=== PATIENT | male | born 1955 | race Caucasian/White ===

== ENCOUNTER 2017-08-27 21:08 | Emergency (ER) | payer MEDICARE, OTHER ==
[~2017-08-27] VITALS: Ht 182.9 cm; Wt 65.8 kg
[2017-08-27] MEDS ORDERED: CIPRO500 MG PO (23:38)
[2017-08-27] MEDS ORDERED: NORCO 5-325 TA1 EACH PO (23:38)
--- NOTE | 2017-08-28 16:48 | EKG ---
[facility] [address] [facility] [place] [address] Signed Normal sinus rhythm Normal ECG No previous ECGs available Confirmed by CASSIDY BURT MD ([id number]) on 08/28/2017 4:47:57 PM Electronically Signed By: CASSIDY BURT MD 08/28/17 1648 PATIENT NAME: SHREYAS CARDOZO Electrocardiogram DATE OF : 57 PHYSICIAN: CASSIDY BURT MD REPORT #: [id number] REPORT IS CONFIDENTIAL AND NOT TO BE RELEASED WITHOUT AUTHORIZATION
== END 2017-08-27 23:50 | disposition home or self-care (01) ==
LOC: ED 21:08
DX: N50.89 Other specified disorders of the male genital organs (principal)
CPT/HCPCS: 76870; 80053; 85025; 93005; 93010; 96374; 96375; 99284; J1170; J2405; J7030

== ENCOUNTER 2021-11-06 07:02 | Day surgery (SDC) | payer MEDICARE ==
--- NOTE | 2021-11-05 16:39 | NUR ---
CALLED PT FOR PHONE PRE-ADMIT, NO ANSWER AND NO VOICEMAIL SET UP.
[~2021-11-06] VITALS: Ht 185.4 cm; Wt 56.4 kg
--- NOTE | ~2021-11-06 | OR ---
[facility] [address] [place], [place] [address] Draft DATE OF OPERATION: 11/06/2021 SURGEON: Luis Shafer MD PREOPERATIVE DIAGNOSES: 1. History of right partial glossectomy. 2. Weight loss and dysphagia. POSTOPERATIVE DIAGNOSES: 1. History of right partial glossectomy. 2. Weight loss and dysphagia. PROCEDURES: 1. Upper endoscopy (diagnostic). 2. Percutaneous endoscopic gastrostomy tube placement. ANESTHESIA: Intravenous sedation (propofol infusion); Guille Che, BASKETBALL REFEREE and local 1% lidocaine. INDICATIONS: This 66-year-old white man is a patient of Dr. Cooper Collins, radiation therapist and was referred for consideration of percutaneous endoscopic gastrostomy tube. The patient underwent partial glossectomy at [facility] as well as neck dissection and has a fair amount of dysphagia and has had significant weight loss over time. He did have a nasoenteric feeding tube placed at time of his original operation, but did not tolerate it well. He has been considered for radiation and chemotherapy of the head and neck and on that basis, predictably his issues with weight loss and dysphagia will worsen rather than improve in the near-term. On that basis, a feeding tube has been recommended by Dr. Collins. I reviewed with the patient the options of feeding tube placement including open gastrostomy versus percutaneous endoscopic gastrostomy (PEG tube), which is preferred of course. The patient understands the risks of placement of his device by other either approach including but not limited to bleeding, infection, malposition and other unforeseen complications and wished to proceed. FINDINGS: Upper endoscopy showed the vocal cord area to be normal. The esophagus showed mild chronic inflammation. No evidence of stricture, Rand epithelium, or neoplasm. The stomach may have a more transverse position than the usual J stomach. The pylorus was PATIENT NAME: SHREYAS CARDOZO OPERATIVE REPORT DATE OF : 57 REPORT #: [id number] PHYSICIAN: LUIS SHAFER MD PCP: COOPER COLLINS REPORT IS CONFIDENTIAL AND NOT TO BE RELEASED WITHOUT AUTHORIZATION [facility] [address] [place], [place] [address] Draft without sign of obstruction. The duodenum was normal. There was no sign of hiatal hernia per se. Placement of the device was without known complication. Entry point to the left of the midline below the left costal margin and approximately two-thirds length of the stomach. DESCRIPTION OF PROCEDURE: The patient was brought to the surgical endoscopy suite (OR room 3) and placed in the supine position. Preoperative antibiotic Ancef was given. Subcutaneous heparin administered and sequential compression device stockings used. He was given intravenous sedation to a level of deep sedation and a bite block was placed. In the supine position, an Olympus video upper endoscope was passed into the hypopharynx. The vocal cords appeared normal. Scope was advanced down the esophagus without problem showing no sign of neoplasm, varices, or other abnormality. The scope was passed. The stomach was insufflated with air. Rugal folds reasonably normal. There was mild chronic gastritis. The pylorus was normal, scope was passed through into the duodenum. The duodenum was normal. There was no sign of gastric outlet obstruction at the pylorus. The scope was withdrawn. Retroflexed view undertaken showed no sign of large hiatal hernia. The scope was positioned to the mid portion of the stomach and transillumination of the abdomen undertaken. The antrum appeared to light up most dominantly 4 cm to the right of the midline, the upper stomach in the left upper quadrant in a more typical position. Most likely, this represented a transverse lie of the stomach rather than the typical J configuration. An area of maximum impulse on abdominal wall palpation was identified in the left upper abdomen, a few centimeters off the midline and this was designated as appropriate for placement of the tube. With the public relations assistant holding the endoscope into position, anterior wall palpation showed good impression on the stomach and easy transillumination. The area was prepared with a chlorhexidine solution and draped sterilely. A 1% lidocaine injected subcutaneously and an angiocatheter passed under direct visualization through the anterior abdominal wall under direct visualization. Once the catheter entered the stomach, the needle was removed and the loop wire passed through the angiocatheter and the angiocatheter withdrawn. Enclosed the snare and the kit was used to grasp the flexible loop wire and it was withdrawn in continuity with the scope through the GE junction and withdrawn out the oral cavity. The PEG tube itself was looped in the appropriate configuration and secured to the double-loop wire and it was withdrawn pulling the apparatus through the oropharynx into the stomach and out the abdominal wall. It was snugged up at about 3 cm. The endoscope was then replaced into the esophagus, then to the stomach, visualizing the placement of the alvarado of the PEG tube device. It was snugged up a bit more and the enclosed collar PATIENT NAME: SHREYAS CARDOZO OPERATIVE REPORT DATE OF : 57 REPORT #: [id number] PHYSICIAN: LUIS SHAFER MD PCP: COOPER COLLINS REPORT IS CONFIDENTIAL AND NOT TO BE RELEASED WITHOUT AUTHORIZATION [facility] [address], [place] [address] Draft applied over the tube, the tube trimmed and various attachments applied to it. Irrigation through the device showed free flow of the saline solution. The flange was secured to the abdominal wall after application of neomycin ointment at the puncture site. The flange was secured with a number one nylon tie so as to avoid dislodgement of the flange. The scope was carefully withdrawn, showing no sign of injury to the esophagus or other structures upon passage of the device. The PEG tube was secured to the abdominal wall with an OpSite and gauze dressing. The patient allowed to emerge from sedation and taken to the recovery room in good condition, having suffered no complications. Sponge, needle, and instrument counts reported as correct x3. Luis Shafer MD /YODITL /[id number] cc: Cooper Collins MD, PH.D. Copies: COOPER COLLINS ~ PATIENT NAME: SHREYAS CARDOZO OPERATIVE REPORT DATE OF : 57 REPORT #: [id number] PHYSICIAN: LUIS SHAFER MD PCP: EVELIN,COOPER REPORT IS CONFIDENTIAL AND NOT TO BE RELEASED WITHOUT AUTHORIZATION
[~2021-11-06 07:02] MED LIST: CIPRO500 MG PO; HYDROXYZINE HCL10 MG PO; NORCO 5-325 TA1 EACH PO
[2021-11-06] MEDS ORDERED: ADDERALL 30 MG30 MG PO (07:30)
--- NOTE | 2021-11-06 11:47 | NUR ---
11/06/21 1147 Coni Meeks 1135 PATIENT ARRIVES TO PACU UNRESPONSIVE TO VERBAL STIMULI. DOES NOT FOLLOW COMMANDS. RESP LABORED WITH COARSE COUGH. MOUTH SUCTIONED OF CLEAR SECRETIONS. PATIENT HAS A CONTINUOUS COUGH. HOB ELEVATED. MASK AT 6 LITERS. 1140 PATIENT CONTINUES TO COUGH ALMOST CONTINUOUSLY. MOUTH SUCTIONED OF CLEAR SECRETIONS. RESP CONTINUE TO BE SLIGHTLY LABORED. HOB LEFT IN UPRIGHT POSITION. 1145 PATIENT CONTINUES TO HAVE CONTINUOUS COUGH. BECOMING MORE HYPOTENSIVE. HOB LOWER, PATIENT ROLLED ONTO RIGHT SIDE. COUGHING IMPROVING. RESP ONLY SLIGHTLY LABORED. MASK OFF. ROOM AIR SATS >97%.
[2021-11-06] MEDS ORDERED: OXYCODON-ACETA1 EAC2 PO (12:15)
[2021-11-06] MEDS ORDERED: ACETAMINOPHEN500 MG PO (12:15)
[2021-11-06] MEDS ORDERED: IBUPROFEN600 MG PO (12:15)
== END 2021-11-06 12:45 | disposition home or self-care (01) ==
LOC: DS 07:02
PROVIDERS: ATTEND Surgery
PROC: 0DH63UZ Insertion of Feeding Device into Stomach, Percutaneous Approach (ICD-10-PCS; principal; 2021-11-06 08:15)
DX: R13.12 Dysphagia, oropharyngeal phase (principal); C02.9 Malignant neoplasm of tongue, unspecified; C77.0 Secondary and unspecified malignant neoplasm of lymph nodes of head, face and neck; R63.4 Abnormal weight loss; Z68.1 Body mass index [BMI] 19.9 or less, adult; R47.89 Other speech disturbances; Z20.822 Contact with and (suspected) exposure to COVID-19; Z87.891 Personal history of nicotine dependence
CPT/HCPCS: 87502; J1644; J2704; J7121; U0003